=== PATIENT | female | born 1950 | race Caucasian/White ===

== ENCOUNTER → 2020-10-11 | Day surgery (SDC) | payer MEDICARE ==
[~2020-10-11] MED LIST: ACIDOPHILUS1 EAC2 PO; ALENDRONATE SOD70 MG PO; B12 PO; CORGARD40 MG PO; IRON18 MG PO; IRON325 M1 PO; NADOLOL20 MG PO; PROTONIX 40 MG40 M1 PO; SPIRONOLACTONE25 MG PO; TRIAMTERENE-HC1 EAC4 PO; VITAMIN C500 MG PO; VITAMIN D21250 MCG PO; ZOFRAN 4 MG TAB4 MG PO
== END | disposition home or self-care (01) ==
LOC: OR 07:25
DX: D12.6 Benign neoplasm of colon, unspecified (principal); K62.1 Rectal polyp; R18.8 Other ascites; I10 Essential (primary) hypertension; I85.00 Esophageal varices without bleeding; K21.9 Gastro-esophageal reflux disease without esophagitis; D64.9 Anemia, unspecified; K64.8 Other hemorrhoids
CPT/HCPCS: J2704; J7040

== ENCOUNTER → 2021-06-19 | Day surgery (SDC) | payer MEDICARE ==
[~2021-06-19] VITALS: Ht 148.6 cm; Wt 43.3 kg
[~2021-06-19] MED LIST changes: +B-121000 MCG PO; +ONDANSETRON HCL4 MG PO
== END | disposition home or self-care (01) ==
LOC: OR 07:04
DX: K74.60 Unspecified cirrhosis of liver (principal); I85.11 Secondary esophageal varices with bleeding; K76.6 Portal hypertension; K31.89 Other diseases of stomach and duodenum; I10 Essential (primary) hypertension; M81.0 Age-related osteoporosis without current pathological fracture; R18.8 Other ascites; Z20.822 Contact with and (suspected) exposure to COVID-19
CPT/HCPCS: J2704; J7040

== ENCOUNTER → 2022-01-17 | Day surgery (SDC) | payer MEDICARE ==
[~2022-01-17] MED LIST changes: +OSTEO BI-FLEX1 EACH PO
== END | disposition home or self-care (01) ==
LOC: OR 08:17
DX: I85.00 Esophageal varices without bleeding (principal); K76.6 Portal hypertension; K31.89 Other diseases of stomach and duodenum; I10 Essential (primary) hypertension
CPT/HCPCS: J2704; J3010; J7040